=== PATIENT | male | born 1995 | race Hispanic/Latino ===

== ENCOUNTER 2019-07-12 11:29 | Emergency (ER) | payer OTHER ==
[~2019-07-12] VITALS: Ht 167.6 cm; Wt 61.4 kg
[2019-07-12] MEDS ORDERED: ASPI-1 PO (11:36)
[2019-07-12] MEDS ORDERED: APAP325T4 PO (11:36)
--- NOTE | 2019-07-12 12:18 | REP ---
Clinical: Right testicular pain. Technique: Real time valenzuela scale and color Doppler evaluation using linear high frequency transducer. These: Bilateral testicles and epididymi are normal in contour, size, echogenicity, vascularity and overall appearance. No evidence for intratesticular infectious/inflammatory process, torsion, or mass lesion. Right testicle measures 3.9 x 2.1 x 2.7 cm. Left testicle measures 4.5 x 2.0 x 2.8 cm. No hydrocele. No varicocele. Impression: Normal scrotal ultrasound. Electronically Signed by Yuri Tay MD 07/12/2019 12:11 P
[2019-07-12 12:36] LABS: BASO # 0.1 10^3/uL (0.0-0.2); BASO % 0.8 % (0.0-1.0); EOS # 0.1 10^3/uL (0.0-0.5); EOS % 0.8 % (0.0-3.0); HEMATOCRIT 46.7 % (42.0-52.0); HEMOGLOBIN 16.6 g/dl (13.5-17.5); MEAN CORPUSCULAR HEMOGLOBIN 34.7 pg (27.0-33.0); MEAN CORPUSCULAR HGB CONC 35.5 g/dl (32.0-36.5); MEAN CORPUSCULAR VOLUME 97.5 fl (80.0-96.0); MONO # 0.8 10^3/uL (0.0-0.8); MONO % 9.3 % (0.0-5.0); NEUTROPHILS # 5.6 10^3/uL (1.5-8.5); NEUTROPHILS % 65.7 % (36.0-66.0); PLATELET COUNT, AUTOMATED 250 10^3/uL (150-450); RED BLOOD COUNT 4.79 10^6/uL (4.30-6.10); WHITE BLOOD COUNT 8.6 10^3/uL (4.0-10.0)
[2019-07-12 13:02] LABS: ALBUMIN 4.3 GM/DL (3.2-5.2); ALT/SGPT 43 U/L (12-78); BILIRUBIN,DIRECT 0.3 MG/DL (0.0-0.2); BILIRUBIN,TOTAL 0.9 MG/DL (0.2-1.0); BLOOD UREA NITROGEN 12 MG/DL (7-18); CALCIUM LEVEL 9.6 MG/DL (8.5-10.1); CARBON DIOXIDE LEVEL 31 MEQ/L (21-32); CHLORIDE LEVEL 101 MEQ/L (98-107); GLOMERULAR FILTRATION RATE > 60.0 (>60); GLUCOSE, FASTING 92 MG/DL (70-100); LIPASE 150 U/L (73-393); POTASSIUM SERUM 4.3 MEQ/L (3.5-5.1); SODIUM LEVEL 141 MEQ/L (136-145); TOTAL PROTEIN 8.3 GM/DL (6.4-8.2)
[2019-07-12 14:56] VITALS: BP 128/84
[2019-07-12] MEDS ORDERED: ISOVUE-370 76% 100ML VIAL (Q9967) As Ordered ONE (15:02)
--- NOTE | 2019-07-12 15:34 | REP ---
Clinical: Right lower quadrant pain. Technique: Axial contrast enhanced images from the lung bases to the pubic symphysis using 100 ml Isovue 370 intravenous contrast material with coronal and sagittal re-formations. Findings: Lung bases are clear. Visualized heart and pericardium normal. Liver, spleen, pancreas, gallbladder, bilateral adrenal glands and kidneys are normal. The enteric system is without obstruction or acute inflammatory process. Normal cecum, terminal ileum, and appendix are identified in the right lower quadrant. Pelvis demonstrates normal bladder and age appropriate prostate/seminal vesicles. No ascites. No free air. No adenopathy. Abdominal aorta and vasculature appears normal and without aneurysm or dissection. Musculoskeletal structures are intact. Impression: Normal contrast enhanced CT of the abdomen and pelvis. Electronically Signed by Yuri Tay MD 07/12/2019 03:25 P
== END 2019-07-12 16:14 | disposition home or self-care (01) ==
LOC: M ED 11:29
DX: R10.31 Right lower quadrant pain (principal); N50.811 Right testicular pain
CPT/HCPCS: 74177; 76870; 80048; 80076; 81001; 83690; 85025; 93976; 99284; Q9967